=== PATIENT | male | born 1985 | race Caucasian/White ===

== ENCOUNTER 2018-09-07 19:05 | Emergency (ER) | payer BC ==
[2018-09-07] MEDS ORDERED: SUCCINYLCHOLINE 200 MG/10 ML VIAL. ONE (19:10)
[2018-09-07] MEDS ORDERED: MIDAZOLAM HCL PF 5 MG/5 ML VIAL. ONE (19:10)
[2018-09-07] MEDS ORDERED: LIDOCAINE 2% SYRINGE 100 MG/5 ML DISP.SYRIN. ONE (19:10)
[2018-09-07] MEDS ORDERED: PROPOFOL 10,000 MCG/ML (100ML) VIAL IV ONE (19:10)
[2018-09-07 19:24] VITALS: BP 113/62
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
--- NOTE | 2018-09-07 20:33 | RAD ---
Exam: Chest one view INDICATION: Trauma TECHNIQUE: Frontal view of the chest Comparisons: None FINDINGS: Endotracheal tube with tip approximately 3 cm above the antione. Enteric tube traverses below the diaphragm with tip in the left upper quadrant likely within the stomach. There is mild widening of the mediastinum superiorly. Otherwise, The cardiomediastinal silhouette and pulmonary vessels are within normal limits. The lung and pleural spaces are clear. [id number] IMPRESSION: 1. Mild widening of the upper mediastinum. If there is concern for aortic pathology CTA of the chest is recommended. 2. Findings as described above. These findings were discussed with José Brice by Dr. Abdi on 09/07/2018 at 8:30 PM using 2 patient identifiers and read back occurred. Electronically signed by: Meseret Abdi MD (09/07/2018 8:30 PM) [facility]
== END 2018-09-07 19:48 | disposition short-term general hospital (02) ==
LOC: ER 19:05
DX: S22.42XA Multiple fractures of ribs, left side, initial encounter for closed fracture (principal); S20.212A Contusion of left front wall of thorax, initial encounter; S30.1XXA Contusion of abdominal wall, initial encounter; S60.222A Contusion of left hand, initial encounter; S60.221A Contusion of right hand, initial encounter; S80.12XA Contusion of left lower leg, initial encounter; S80.11XA Contusion of right lower leg, initial encounter; S09.8XXA Other specified injuries of head, initial encounter; F10.20 Alcohol dependence, uncomplicated; E03.9 Hypothyroidism, unspecified; F17.210 Nicotine dependence, cigarettes, uncomplicated; Y90.9 Presence of alcohol in blood, level not specified; V29.9XXA Motorcycle rider (driver) (passenger) injured in unspecified traffic accident, initial encounter; Y93.I9 Activity, other involving external motion; Y92.488 Other paved roadways as the place of occurrence of the external cause; Y99.8 Other external cause status
CPT/HCPCS: 31500; 51702; 71045; 99291; J0330; J2250; J2704